=== PATIENT | female | born 1995 | race African-American/Black ===

== ENCOUNTER 2016-08-25 16:11 | Emergency (ER) | payer MEDICAID ==
[2016-08-25] MEDS ORDERED: FLUCONAZOLE 100 MG TABLET PO STA (18:26)
[2016-08-25] MEDS ORDERED: metroNIDAZOLE 250 MG TABLET PO STA (18:26)
[2016-08-25] MEDS ORDERED: metroNIDAZOLE 250 MG TABLET PO ONE (18:29)
[2016-08-25] MEDS ORDERED: FLUCONAZOLE 100 MG TABLET PO ONE (18:29)
== END 2016-08-25 18:48 | disposition home or self-care (01) ==
DX: N76.0 Acute vaginitis (principal); B96.89 Other specified bacterial agents as the cause of diseases classified elsewhere
CPT/HCPCS: 81003; 81025; 87210; 87220; 87491; 87591; 99283; A9270

== ENCOUNTER 2016-10-15 15:38 | Emergency (ER) | payer MEDICAID ==
[2016-10-15] MEDS ORDERED: ONDANSETRON ODT 4 MG TABLET TL STA (16:09)
[2016-10-15] MEDS ORDERED: ONDANSETRON ODT 4 MG TABLET ONE (16:10)
[2016-10-15] MEDS ORDERED: FAMOTIDINE 20 MG TABLET PO STA (16:10)
[2016-10-15] MEDS ORDERED: FAMOTIDINE 20 MG TABLET ONE (16:10)
== END 2016-10-15 17:19 | disposition home or self-care (01) ==
DX: N76.0 Acute vaginitis (principal); B96.89 Other specified bacterial agents as the cause of diseases classified elsewhere; R11.11 Vomiting without nausea; J34.89 Other specified disorders of nose and nasal sinuses
CPT/HCPCS: 36415; 80053; 81003; 81025; 83690; 84703; 99283; A9270; Q0162

== ENCOUNTER 2016-10-21 14:46 | Emergency (ER) | payer MEDICAID | END 2016-10-21 15:24 | disposition home or self-care (01) | DX: Z02.89 Encounter for other administrative examinations (principal) ==

== ENCOUNTER 2016-11-19 14:04 | Emergency (ER) | payer MEDICAID | END 2016-11-19 17:50 | disposition home or self-care (01) | DX: R10.2 Pelvic and perineal pain (principal); N93.9 Abnormal uterine and vaginal bleeding, unspecified ==

== ENCOUNTER 2016-11-30 08:00 | Outpatient (CLI) | payer MEDICAID | END 2016-11-30 23:59 | disposition home or self-care (01) | DX: Z11.3 Encounter for screening for infections with a predominantly sexual mode of transmission (principal) ==

== ENCOUNTER 2016-11-30 15:58 | Outpatient (CLI) | payer MEDICAID | END 2016-11-30 15:59 | disposition home or self-care (01) | DX: Z11.3 Encounter for screening for infections with a predominantly sexual mode of transmission (principal) ==

== ENCOUNTER 2017-06-22 19:59 | Emergency (ER) | payer MEDICAID ==
[2017-06-22 20:42] LABS: BILIRUBIN,URINE NEGATIVE (NEGATIVE)
[2017-06-22 20:47] LABS: HCG UR QUAL NEGATIVE; UA CHARGE (STRIP ONLY) YES; UR CULTURE IF IND NOT INDICATED
[2017-06-22] MEDS ORDERED: metroNIDAZOLE 250 MG TABLET PO STA (23:04)
[2017-06-22] MEDS ORDERED: FLUCONAZOLE 100 MG TABLET PO STA (23:04)
--- NOTE | 2017-06-22 23:06 | ED Physician Documentation ---
PD HPI FEMALE - Stated complaint Stated Complaint: ABDOMINAL PAIN - Chief complaint Chief Complaint: Abd Pain - History obtained from History obtained from: Patient - History of Present Illness Timing - onset: How many days ago (4) Timing - details: Gradual onset, Still present Associated symptoms: Pelvic pain, Vaginal discharge Similar symptoms before: Work up / diagnostics, Treatment Recently seen: Not recently seen - Additional information Additional information: Patient is a 22 year old female presenting to the emergency department for pelvic pain and vaginal discharge. Patient states that last week she tested positive for chlamydia and took an oral medication. Patient states that she still had some discharge and some abdominal pain so she came to get checked out. Review of Systems Constitutional: denies: Fever, Chills Eyes: reports: Reviewed and negative Ears: reports: Reviewed and negative Nose: reports: Reviewed and negative Throat: reports: Reviewed and negative Cardiac: reports: Reviewed and negative Respiratory: reports: Reviewed and negative GI: reports: Abdominal Pain. denies: Nausea, Vomiting, Constipation, Diarrhea : reports: Discharge. 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 - Present Medications Home Medications: Ambulatory Orders Medication Instructions Recorded Confirmed Famotidine 20 mg PO DAILY #30 tablet 10/15/16 Metronidazole [Flagyl] 500 mg PO BID #14 tablet 10/15/16 Ondansetron HCl [Zofran] 4 mg PO Q6H PRN #20 tablet 10/15/16 metroNIDAZOLE [Metronidazole] 500 mg PO BID #14 tablet 06/22/17 - Allergies Allergies/Adverse Reactions: Allergies Allergy/AdvReac Type Severity Reaction Status Date / Time No Known Drug Allergies Allergy Verified 06/22/17 20:10 - Social History Does the pt smoke?: No Smoking Status: Never smoker Does the pt drink ETOH?: Yes Does the pt have substance abuse?: No - Immunizations Immunizations are current?: Yes - POLST Patient has POLST: No PD ED PE NORMAL - Vitals Vital signs reviewed: Yes - General General: Alert and oriented X 3, No acute distress - HEENT HEENT: Atraumatic, PERRL - Neck Neck: Supple, no meningeal sign - Cardiac Cardiac: RRR, No murmur - Respiratory Respiratory: No respiratory distress - Abdomen Abdomen: Soft, Non distended - Derm Derm: Normal color, Warm and dry, No rash - Extremities Extremities: No deformity, Normal ROM s pain - Neuro Neuro: Alert and oriented X 3, No motor deficit, No sensory deficit - Psych Psych: Normal mood PD ED PE EXPANDED - Female Female : Normal external, Vaginal Discharge. No: Dilated cervix, Tissue present, Adnexal Tenderness Results - Vitals Vitals: Vital Signs - 24 hr 06/22/17 06/22/17 20:11 23:17 Temperature 36.8 C 36.8 C Heart Rate 72 78 Respiratory 14 18 Rate Blood Pressure 107/70 130/80 O2 Saturation 100 98 Oxygen O2 Source Room air - Labs Labs: Microbiology 06/22/17 22:30 Wet Prep - Final Vaginal Laboratory Tests 06/22/17 20:24 Urine Color YELLOW Urine Clarity CLEAR Urine pH 6.0 Ur Specific [place] 1.025 Urine Protein NEGATIVE Urine Glucose (UA) NEGATIVE Urine Ketones NEGATIVE Urine Occult Blood NEGATIVE Urine Nitrite NEGATIVE Urine Bilirubin NEGATIVE Urine Urobilinogen 0.2 (NORMAL) Ur Leukocyte Esterase NEGATIVE Ur Microscopic Review NOT INDICATED Urine Culture Comments NOT INDICATED Urine HCG, Qual NEGATIVE PD MEDICAL DECISION MAKING - ED course Complexity details: reviewed old records, reviewed results, re-evaluated patient , considered differential, d/w patient ED course: Patient was seen and examined at bedside. urine was collected and sent. pelvic exam was performed and findings were consistent with BV and a yeast infection. Patient was treated for both. Since patient was recently treated it was decided to wait for culture results before treating for GC/chlamydia again. Patient was made aware of, and was comfortable with the plan. Patient required no further work up and was stable for discharge with outpatient follow up. Departure - Departure Disposition: 01 Home, Self Care Clinical Impression: Bacterial vaginosis Condition: Good Instructions: ED Vaginosis Bacterial Follow-Up: primary,care provider [Other] - As Needed Prescriptions: metroNIDAZOLE [Metronidazole] 500 mg PO BID #14 tablet Comments: Your diagnostics today were consistent with bacterial vaginosis. You will be on metronidazole twice a day for the next week. You cannot drink while taking it. You can call in the next 3 days for your culture results. You should refrain from sexual activity until you have those results. You may return to the emergency department at any time if needed for new, worsening or uncontrollable symptoms. Discharge Date/Time: 06/22/17 23:20
[2017-06-22] MEDS ORDERED: FLUCONAZOLE 100 MG TABLET ONE (23:19)
[2017-06-22] MEDS ORDERED: metroNIDAZOLE 250 MG TABLET PO ONE (23:19)
[2017-06-22 23:20] VITALS: BP 130/80
== END 2017-06-22 23:20 | disposition home or self-care (01) ==
LOC: ED 19:59
DX: N76.0 Acute vaginitis (principal); B96.89 Other specified bacterial agents as the cause of diseases classified elsewhere
CPT/HCPCS: 81003; 81025; 87210; 87491; 87591; 99283; A9270; 81001; 87086

== ENCOUNTER 2017-08-10 10:29 | Emergency (ER) | payer SELFPAY ==
[2017-08-10 11:15] LABS: BILIRUBIN,URINE NEGATIVE (NEGATIVE); GLUCOSE, URINE (UA) NEGATIVE (NEGATIVE); KETONES,URINE (UA) NEGATIVE (NEGATIVE); LEUKOCYTE ESTERASE, URINE NEGATIVE (NEGATIVE); NITRITE,URINE NEGATIVE (NEGATIVE); OCCULT BLOOD,URINE NEGATIVE (NEGATIVE); PROTEIN,URINE NEGATIVE (NEGATIVE); UROBILINOGEN,URINE 0.2 (NORMAL) E.U./dL (NORMAL)
[2017-08-10 11:19] LABS: CLARITY,URINE CLEAR (CLEAR); HCG UR QUAL NEGATIVE
--- NOTE | 2017-08-10 12:35 | ED Physician Documentation ---
History of Present Illness - Stated complaint Stated Complaint: FEMALE , ABD PX, HEADACHE, COUGH, LOSING VOICE - Chief complaint Chief Complaint: General - History obtained from History obtained from: Patient - History of Present Illness Timing: How many days ago (several) Pain level max: 2 Pain level now: 1 - Additonal information Additional information: Patient is a patient is a 22-year-old female who presents to the emergency department with multiple complaints. The first is rhinorrhea, cough and congestion for the past several days. She also feels like she has lost her voice. She states that it is better with resting her voice and worse with talking. The cough is worse when she lies down. No fevers. She also complains of a fishy odor from her vagina. Denies any discharge. Denies any change in sexual partners. Was treated for chlamydia in May. Review of Systems Constitutional: denies: Fever, Chills Nose: reports: Rhinorrhea / runny nose, Congestion Throat: reports: Sore throat (mild) Respiratory: reports: Cough GI: denies: Abdominal Pain, Vomiting, Diarrhea : denies: Dysuria, Frequency, Hesitancy, Now EGA Skin: reports: Rash (States noted a rash to the legs this morning. 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 - Present Medications Home Medications: Ambulatory Orders Medication Instructions Recorded Confirmed Cetirizine HCl/Pseudoephedrine 1 each PO BID PRN #30 tab.er.12h 08/10/17 [Zyrtec-D Tablet] - Allergies Allergies/Adverse Reactions: Allergies Allergy/AdvReac Type Severity Reaction Status Date / Time No Known Drug Allergies Allergy Verified 06/22/17 20:10 - Social History Does the pt smoke?: No Smoking Status: Never smoker Does the pt drink ETOH?: Yes Does the pt have substance abuse?: No - Immunizations Immunizations are current?: Yes - POLST Patient has POLST: No PD ED PE NORMAL - Vitals Vital signs reviewed: Yes - General General: Alert and oriented X 3, No acute distress, Well developed/nourished - HEENT HEENT: PERRL, Ears normal, Moist mucous membranes, Pharynx benign - Neck Neck: Supple, no meningeal sign, No adenopathy - Cardiac Cardiac: RRR, Strong equal pulses - Respiratory Respiratory: No respiratory distress, Clear bilaterally - Abdomen Abdomen: Soft, Non tender, Non distended - Female Female : 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 no significant discharge. no CMT. no ovarian masses. ) - Derm Derm: Warm and dry, Other (mild erythematous rash to the B LE. ) - Neuro Neuro: Alert and oriented X 3 - Psych Psych: Normal mood, Normal affect Results - Vitals Vitals: Vital Signs - 24 hr 08/10/17 08/10/17 08/10/17 10:48 13:03 13:28 Temperature 37.2 C 36.6 C 36.5 C Heart Rate 90 80 64 Respiratory 16 12 14 Rate Blood Pressure 123/83 H 120/72 114/67 O2 Saturation 99 99 100 Oxygen O2 Source Room air - Labs Labs: Microbiology 08/10/17 12:40 DANIA Preparation - Final Other - Vaginal 08/10/17 12:40 Wet Prep - Final Vaginal Laboratory Tests 08/10/17 08/10/17 08/10/17 10:50 11:07 11:07 WBC 3.7 L RBC 4.32 Hgb 12.6 Hct 37.5 MCV 86.8 MCH 29.2 MCHC 33.7 RDW 13.9 Plt Count 183 MPV 9.7 Neut # 1.9 Lymph # 1.1 L [place] # 0.5 Eos # 0.2 Baso # 0.0 Absolute Nucleated RBC 0.00 Nucleated RBC % 0.0 Sodium 137 Potassium 3.5 Chloride 106 Carbon Dioxide 23 Anion Gap 8.0 BUN 14 Creatinine 0.7 Estimated GFR (MDRD) 125 Glucose 80 Calcium 8.7 Total Bilirubin 0.9 AST 23 ALT 15 Alkaline Phosphatase 60 Total Protein 7.4 Albumin 4.2 Globulin 3.2 Albumin/Globulin Ratio 1.3 Lipase 18 L Urine Color YELLOW Urine Clarity CLEAR Urine pH 6.0 Ur Specific [place] >=1.030 H Urine Protein NEGATIVE Urine Glucose (UA) NEGATIVE Urine Ketones NEGATIVE Urine Occult Blood NEGATIVE Urine Nitrite NEGATIVE Urine Bilirubin NEGATIVE Urine Urobilinogen 0.2 (NORMAL) Ur Leukocyte Esterase NEGATIVE Ur Microscopic Review NOT INDICATED Urine Culture Comments NOT INDICATED Urine HCG, Qual NEGATIVE PD MEDICAL DECISION MAKING - ED course Complexity details: reviewed old records, reviewed results, re-evaluated patient , considered differential, d/w patient ED course: Patient is a 22-year-old female who presents to the emergency department what appears to be a viral upper respiratory infection. No evidence of pneumonia, sepsis. No fever. No hypoxia. Also complaining of vaginal odor, unclear etiology. Gonorrhea and chlamydia swabs were sent. Does not appear to have pelvic inflammatory disease. No evidence of bacterial vaginitis, Trichomonas, yeast infection. Will continue supportive care and follow-up with her doctor. Patient counseled regarding signs and symptoms for which I believe and urgent re -evaluation would be necessary. Patient with good understanding of and agreement to plan and is comfortable going home at this time This document was made in part using voice recognition software. While efforts are made to proofread this document, sound alike and grammatical errors may occur. Departure - Departure Disposition: 01 Home, Self Care Clinical Impression: Viral URI, Vaginal odor Condition: Good Instructions: ED Viral Syndrome Follow-Up: your,doctor in 1 week [Other] Prescriptions: Cetirizine HCl/Pseudoephedrine [Zyrtec-D Tablet] 1 each PO BID PRN #30 tab.er.12h PRN Reason: Nasal Congestion Comments: Return if you worsen. Your tests are normal today. Gonorrhea and chlamydia testing are sent and we will call you if the tests are positive. You should have further testing including HIV with your doctor. Discharge Date/Time: 08/10/17 13:30
[2017-08-10 12:44] LABS: EOSINOPHILS # (AUTO) 0.2 10^3/uL (0.0-0.7); EOSINOPHILS % (AUTO) 5.2 %; HGB - HEMOGLOBIN 12.6 g/dL (12.0-16.0); LYMPHOCYTES # (AUTO) 1.1 10^3/uL (1.5-3.5); LYMPHOCYTES % (AUTO) 29.3 %; MEAN CORPUSCULAR HEMOGLOBIN 29.2 pg (27.0-31.0); MEAN CORPUSCULAR HGB CONC 33.7 g/dL (32.0-36.0); MEAN CORPUSCULAR VOLUME 86.8 fL (81.0-99.0); MEAN PLATELET VOLUME 9.7 fL (7.9-10.8); MONOCYTES # (AUTO) 0.5 10^3/uL (0.0-1.0); MONOCYTES % (AUTO) 13.6 %; NEUTROPHILS # (AUTO) 1.9 10^3/uL (1.5-6.6); NEUTROPHILS % (AUTO) 50.9 %; PLT - PLATELET COUNT 183 10^3/uL (130-450); RED BLOOD COUNT 4.32 10^6/uL (4.20-5.40); RED CELL DISTRIBUTION WIDTH 13.9 % (12.0-15.0); WHITE BLOOD COUNT 3.7 x10^3/uL (4.8-10.8)
[2017-08-10 12:51] LABS: ALBUMIN 4.2 g/dL (3.2-5.5); ALBUMIN/GLOBULIN RATIO 1.3 (1.0-2.2); BILIRUBIN,TOTAL 0.9 mg/dL (0.2-1.0); CALCIUM 8.7 mg/dL (8.5-10.3); CREATININE 0.7 mg/dL (0.4-1.0); TOTAL PROTEIN 7.4 g/dL (6.7-8.2)
[2017-08-10 13:30] VITALS: BP 114/67
== END 2017-08-10 13:30 | disposition home or self-care (01) ==
LOC: ED 10:29
DX: J06.9 Acute upper respiratory infection, unspecified (principal); B97.89 Other viral agents as the cause of diseases classified elsewhere; N89.8 Other specified noninflammatory disorders of vagina
CPT/HCPCS: 36415; 80053; 81001; 81003; 81025; 83690; 85025; 87086; 87210; 87220; 87491; 87591; 99283

== ENCOUNTER 2017-08-27 15:11 | Emergency (ER) | payer MEDICAID ==
[2017-08-27] MEDS ORDERED: MAG HYDROX/AL HYDROX/SIMETH 30 ML UDC PO STA (15:58)
[2017-08-27] MEDS ORDERED: PHENobarb/HYOSCY/ATROPINE/SCOP 5 ML SYRINGE PO STA (15:58)
[2017-08-27] MEDS ORDERED: LIDOCAINE VISCOUS 2% 15 ML UDC MM STA (15:58)
--- NOTE | 2017-08-27 16:00 | ED Physician Documentation ---
PD HPI CHEST PAIN - Stated complaint Stated Complaint: CHEST PAIN - Chief complaint Chief Complaint: General - History obtained from History obtained from: Patient - History of Present Illness Timing - onset: How many days ago (3) Timing - onset during: Rest Timing - details: Waxing and waning Location: Substernal Worsened by: Inspiration, Position (Supine) Associated symptoms: No: Shortness of air, Nausea, Vomiting, Cough Similar symptoms before: Has not had sx before - Additional information Additional information: The patient is an otherwise healthy 22-year-old female who presents with substernal chest pain that started 3 days ago and has been waxing and waning since that time. It is worse with deep inspiration or with supine position. She had been experiencing fever, chills, and myalgias for the past few days until yesterday. She denies those symptoms today. She has had slight cough without shortness of breath. She denies abdominal pain, nausea, vomiting, or diarrhea. She denies history of similar symptoms in the past. She quit smoking cigarettes 3 months ago. Review of Systems Constitutional: reports: Fever (Recently), Myalgias (Recently) Nose: denies: Congestion Throat: denies: Sore throat Cardiac: reports: Chest pain / pressure (Substernal). 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 - Present Medications Home Medications: Ambulatory Orders Medication Instructions Recorded Confirmed Cetirizine HCl/Pseudoephedrine 1 each PO BID PRN #30 tab.er.12h 08/10/17 [Zyrtec-D Tablet] HYDROcod/ACETAM 5/325 [[place] 5/325] 1 - 2 ea PO Q6H PRN #15 tablet 08/27/17 - Allergies Allergies/Adverse Reactions: Allergies Allergy/AdvReac Type Severity Reaction Status Date / Time No Known Drug Allergies Allergy Verified 06/22/17 20:10 - Social History Does the pt smoke?: No Smoking Status: Never smoker Does the pt drink ETOH?: Yes Does the pt have substance abuse?: No - Immunizations Immunizations are current?: Yes - POLST Patient has POLST: No PD ED PE NORMAL - Vitals Vital signs reviewed: Yes (Normal) - General General: Alert and oriented X 3, Well developed/nourished - HEENT HEENT: Atraumatic, Moist mucous membranes, Pharynx benign - Neck Neck: No bony TTP, No adenopathy, No JVD - Cardiac Cardiac: RRR, No murmur - Respiratory Respiratory: No respiratory distress, Clear bilaterally, Other (Mild tenderness to palpation of the left anterior chest wall.) - Abdomen Abdomen: Normal bowel sounds, Non tender, No organomegaly, Other (Mild tenderness to epigastric palpation,without rebound or guarding.) - Back Back: No CVA TTP - Derm Derm: No rash - Extremities Extremities: No edema, No calf tenderness / cord - Neuro Neuro: Alert and oriented X 3, No motor deficit, Normal speech Results - Vitals Vitals: Oxygen O2 Source Room air - EKG (time done) 15:18 Rate: Rate (enter#) (101) Rhythm: Sinus tachycardia [place]: Normal QRS: Normal Ischemia: Normal ST segments Computer interpretation: Agree with computer - Labs Labs: Laboratory Tests 08/27/17 18:00 Influenza A (Rapid) Negative Influenza B (Rapid) Negative Influenza Types A,B Ag - - Rads (name of study) CXR Radiology: Prelim report reviewed, EMP read contemporaneously, See rad report ( Normal 2 view chest radiography.) PD MEDICAL DECISION MAKING - ED course Complexity details: reviewed results, re-evaluated patient, considered differential, d/w patient, d/w family ED course: The patient's presentation is most consistent with costochondritis. She had recent respiratory infection, but no current symptoms of respiratory infection. Chest x-ray reveals no evidence of pneumonia. Her electrocardiogram reveals no ischemic abnormalities. Gastroesophageal reflux was considered, but is less likely. Her presentation does not suggest pulmonary embolus, and there is currently no evidence of pericarditis. Flu swab is negative. Treatment in the emergency department included administration of GI cocktail which provided no relief in her symptoms. I discussed with her and her the results of her workup, symptomatic treatment and outpatient follow-up, as well as potentially worrisome signs or symptoms that should prompt reevaluation in the emergency department. She is being discharged with prescription for Vicodin, 15 tablets. Departure - Departure Disposition: Home, Self Care Clinical Impression: Costochondral chest pain Condition: Stable Instructions: ED Chest Pain Costochondritis Prescriptions: HYDROcod/ACETAM 5/325 [[place] 5/325] 1 - 2 ea PO Q6H PRN #15 tablet PRN Reason: Pain Comments: You can use ibuprofen, up to 800 mg 3 times daily for its anti-inflammatory effect. You can use Vicodin as prescribed if needed for pain. Follow-up with primary physician within 2 weeks if possible. Call to schedule appointment. Return to the emergency department if you develop increasing chest pain, increasing difficulty breathing, or otherwise worsening symptoms. Discharge Date/Time: 08/27/17 19:11
--- NOTE | 2017-08-27 17:12 | XRAY Report ---
EXAM: CHEST RADIOGRAPHY EXAM DATE: 08/27/2017 05:04 PM. CLINICAL HISTORY: Chest pain. COMPARISON: 08/09/2016 chest x-ray. TECHNIQUE: 2 views. FINDINGS: Lungs/Pleura: No focal opacities evident. No pleural effusion. No pneumothorax. Normal volumes. Mediastinum: Heart and mediastinal contours are unremarkable. Other: None. IMPRESSION: Normal 2-view chest radiography. [facility] Referring Provider Line: [phone] SITE ID: [id number]
[2017-08-27 18:48] VITALS: BP 127/69
== END 2017-08-27 19:11 | disposition home or self-care (01) ==
LOC: ED 15:11
DX: R07.1 Chest pain on breathing (principal)
CPT/HCPCS: 71046; 87275; 87276; 93005; 99283; 99284; A9270

== ENCOUNTER 2017-12-17 09:33 | Emergency (ER) | payer MEDICAID ==
[2017-12-17] MEDS ORDERED: MAG HYDROX/AL HYDROX/SIMETH 30 ML UDC PO STA (10:29)
[2017-12-17] MEDS ORDERED: LIDOCAINE VISCOUS 2% 15 ML UDC MM STA (10:29)
--- NOTE | 2017-12-17 10:40 | ED Physician Documentation ---
PD HPI CHEST PAIN - Stated complaint Stated Complaint: CHEST PX - Chief complaint Chief Complaint: Cardiac - History obtained from History obtained from: Patient - History of Present Illness Timing - onset: How many days ago (3) Timing - details: Waxing and waning Location: Substernal Worsened by: Inspiration, Position (supine) Similar symptoms before: Work up / diagnostics (She was seen in the emergency department here 4 months ago with similar symptoms, and workup was inconclusive at that time.) - Additional information Additional information: The patient is a 22-year-old female who presents with substernal chest pain that started 3 days ago and has persisted since that time. Pain is worse with deep inspiration or with supine position. She denies associated cough, shortness of breath, fever, nausea or vomiting. Review of her medical records reveals that she was seen here 4 months ago with a similar presentation. EKG and chest x-ray were normal at that time except for mild sinus tachycardia of 101. The workup at that time was inconclusive, and she was discharged with a presumptive diagnosis of costochondritis. Review of Systems Constitutional: denies: Fever Nose: denies: Congestion Throat: denies: Oral lesions / sores Cardiac: reports: Chest pain / pressure. 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 - Present Medications Home Medications: Ambulatory Orders Medication Instructions Recorded Confirmed Cetirizine HCl/Pseudoephedrine 1 each PO BID PRN #30 tab.er.12h 08/10/17 [Zyrtec-D Tablet] HYDROcod/ACETAM 5/325 [[place] 5/325] 1 - 2 ea PO Q6H PRN #15 tablet 08/27/17 Azithromycin [Zithromax] 250 mg PO DAILY #6 tablet 12/17/17 - Allergies Allergies/Adverse Reactions: Allergies Allergy/AdvReac Type Severity Reaction Status Date / Time No Known Drug Allergies Allergy Verified 12/17/17 09:56 - Social History Does the pt smoke?: No Smoking Status: Never smoker Does the pt drink ETOH?: Yes Does the pt have substance abuse?: No - Immunizations Immunizations are current?: Yes - POLST Patient has POLST: No PD ED PE NORMAL - Vitals Vital signs reviewed: Yes (normal) - General General: Alert and oriented X 3, Well developed/nourished, Other (Overweight) - HEENT HEENT: Atraumatic, Pharynx benign - Neck Neck: No adenopathy, No JVD - Cardiac Cardiac: RRR, No murmur - Respiratory Respiratory: No respiratory distress, Clear bilaterally - Abdomen Abdomen: Soft, Non tender - Back Back: No CVA TTP - Derm Derm: No rash - Extremities Extremities: No edema, No calf tenderness / cord - Neuro Neuro: Alert and oriented X 3, No motor deficit, Normal speech Results - Vitals Vitals: Oxygen O2 Source Room air - EKG (time done) 09:40 Rate: Rate (enter#) (105) Rhythm: LAE [place]: Normal Ischemia: Other (RSR' in V1) Compare to prior EKG: Unchanged from prior EKG Computer interpretation: Agree with computer - Labs Labs: Laboratory Tests 12/17/17 12/17/17 12/17/17 11:44 11:44 11:44 WBC 8.3 RBC 4.45 Hgb 12.5 Hct 38.1 MCV 85.6 MCH 28.0 MCHC 32.7 RDW 13.9 Plt Count 195 MPV 9.0 Neut # 5.4 Lymph # 2.0 [place] # 0.8 Eos # 0.1 Baso # 0.0 Absolute Nucleated RBC 0.01 Nucleated RBC % 0.1 D-Dimer 221.3 Sodium 137 Potassium 3.4 L Chloride 103 Carbon Dioxide 25 Anion Gap 9.0 BUN 10 Creatinine 0.7 Estimated GFR (MDRD) 125 Glucose 91 Calcium 9.2 Total Bilirubin 1.6 H AST 16 ALT 12 Alkaline Phosphatase 47 Troponin I Total Protein 7.6 Albumin 4.2 Globulin 3.4 Albumin/Globulin Ratio 1.2 Lipase 31 12/17/17 11:44 WBC RBC Hgb Hct MCV MCH MCHC RDW Plt Count MPV Neut # Lymph # [place] # Eos # Baso # Absolute Nucleated RBC Nucleated RBC % D-Dimer Sodium Potassium Chloride Carbon Dioxide Anion Gap BUN Creatinine Estimated GFR (MDRD) Glucose Calcium Total Bilirubin AST ALT Alkaline Phosphatase Troponin I < 0.04 Total Protein Albumin Globulin Albumin/Globulin Ratio Lipase - Rads (name of study) 2-view CXR Radiology: Prelim report reviewed, EMP read contemporaneously, See rad report ( Mild hypoinflation. Focal opacity at the lung base demonstrated only on the lateral view. Differential diagnosis includes focal atelectasis or infiltrate or a small hiatal hernia. Further evaluation by CT imaging could be performed.) Chest CT Radiology: Prelim report reviewed, EMP read contemporaneously, See rad report ( Focal consolidation at the anterior aspect of the base of the left lower lobe, corresponding to the pulmonary opacity seen on radiographs. Findings may represent segmental atelectasis or pneumonia. Given the absence of clear volume loss, pneumonia is thought to be more likely.) PD MEDICAL DECISION MAKING - ED course Complexity details: reviewed old records, reviewed results, re-evaluated patient , considered differential, d/w patient ED course: The patient's presentation is significant for left lower lobe focal consolidation suggestive of pneumonia. This was a very subtle finding on chest x-ray, and was more clearly elucidated on CT scan of the chest. There is no evidence of pulmonary embolus or congestive heart failure. Treatment in the emergency department included administration of GI cocktail, which did not change her discomfort. Zithromax 500 mg is administered orally. She is being discharged with prescription for Zithromax. I discussed with her the diagnosis, expected course of illness, antibiotic treatment and outpatient follow-up, as well as potentially worrisome signs or symptoms that should prompt reevaluation in the emergency department. Departure - Departure Disposition: 01 Home, Self Care Clinical Impression: Pneumonia Qualifiers: Pneumonia type: due to unspecified organism Laterality: left Lung location: lower lobe of lung Qualified Code(s): J18.1 - Lobar pneumonia, unspecified organism Condition: Stable Instructions: ED Pneumonia Adult Follow-Up: [facility] [Provider Group] Prescriptions: Azithromycin [Zithromax] 250 mg PO DAILY #6 tablet Comments: Take Zithromax daily as prescribed. You can use Tylenol or ibuprofen if needed for fever or discomfort. Follow up with your primary physician within 1-2 weeks. Call to schedule appointment. Return to the emergency department if you develop increasing difficulty breathing, or otherwise worsening symptoms. Discharge Date/Time: 12/17/17 14:41
[2017-12-17 11:50] LABS: BASOPHILS % (AUTO) 0.5 %; EOSINOPHILS # (AUTO) 0.1 10^3/uL (0.0-0.7); EOSINOPHILS % (AUTO) 0.9 %; HGB - HEMOGLOBIN 12.5 g/dL (12.0-16.0); LYMPHOCYTES % (AUTO) 23.8 %; MEAN CORPUSCULAR HGB CONC 32.7 g/dL (32.0-36.0); MEAN CORPUSCULAR VOLUME 85.6 fL (81.0-99.0); MONOCYTES # (AUTO) 0.8 10^3/uL (0.0-1.0); MONOCYTES % (AUTO) 9.3 %; NEUTROPHILS # (AUTO) 5.4 10^3/uL (1.5-6.6); NEUTROPHILS % (AUTO) 65.5 %; PLT - PLATELET COUNT 195 10^3/uL (130-450); RED BLOOD COUNT 4.45 10^6/uL (4.20-5.40); RED CELL DISTRIBUTION WIDTH 13.9 % (12.0-15.0); WHITE BLOOD COUNT 8.3 x10^3/uL (4.8-10.8)
[2017-12-17 12:02] LABS: ALBUMIN 4.2 g/dL (3.2-5.5); ALBUMIN/GLOBULIN RATIO 1.2 (1.0-2.2); BILIRUBIN,TOTAL 1.6 mg/dL (0.2-1.0); CALCIUM 9.2 mg/dL (8.5-10.3); CREATININE 0.7 mg/dL (0.4-1.0); TOTAL PROTEIN 7.6 g/dL (6.7-8.2)
--- NOTE | 2017-12-17 12:53 | XRAY Report ---
EXAM: CHEST RADIOGRAPHY EXAM DATE: 12/17/2017 12:37 PM. CLINICAL HISTORY: Chest pain. COMPARISON: 08/27/2017 and 08/09/2016. TECHNIQUE: 2 views. FINDINGS: Lungs/Pleura: Mild hypoinflation. Focal density at the mid lung base on the lateral view along the d orsal margin of the heart, without definite correlate on the PA view. 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 This could represent focal infiltrate or atelectasis. Lungs otherwise appear ahsan ar. No cheri pleural effusion. No pneumothorax. Mediastinum: Heart and mediastinal contours are unremarkable. Other: None. IMPRESSION: 1. Mild hypoinflation. 2. Focal opacity at the lung base demonstrated only on the lateral view. Differential diagnosis inclu rica focal atelectasis or infiltrate or a small hiatal hernia. Further evaluation by CT imaging could be performed. [facility] Referring Provider Line: [phone] SITE ID: [id number]
--- NOTE | 2017-12-17 12:53 | XRAY Preliminary Report ---
Exam: XR CHEST 2 VIEW X-RAY IMPRESSION: 1. Mild hypoinflation. 2. Focal opacity at the lung base demonstrated only on the lateral view. Differential diagnosis inclu rica focal atelectasis or infiltrate or a small hiatal hernia. Further evaluation by CT imaging could be performed. [facility] SITE ID: [id number]
[2017-12-17] MEDS ORDERED: IOPAMIDOL-300 100 ML VIAL ONE (13:16)
[2017-12-17] MEDS ORDERED: IOPAMIDOL-300 100 ML VIAL IVP ONE (13:56)
--- NOTE | 2017-12-17 14:22 | CT Report ---
EXAM: CT CHEST EXAM DATE: 12/17/2017 01:56 PM. CLINICAL HISTORY: Indistinct basilar finding on plain film. COMPARISONS: Two-view chest radiographs 12/17/2017, 08/27/2017, 08/09/2016. TECHNIQUE: Routine helical CT imaging was performed through the chest. IV contrast: 80 cc Isovue-300. Reconstructions: Coronal and sagittal. In accordance with CT protocol optimization, one or more of the following dose reduction techniques w ere utilized for this exam: automated exposure control, adjustment of mA and/or KV based on patient s ize, or use of iterative reconstructive technique. FINDINGS: Lungs/Pleura: There is an area of focal consolidation at the anterior aspect of the base of the left lower lobe which measures approximately 6.4 x 2.0 cm (series 4 image 34). There is no definite associ ated volume loss. There is mild subsegmental atelectasis in the dependent portion of the base of the left lower lobe and right lower lobe. No nodules, bronchial thickening, or edema. Pulmonary vasculatu re is normal. No pericardial or pleural effusion. No pneumothorax. Mediastinum: Normal. No adenopathy or masses. The heart and great vessels are normal. Bones: Unremarkable. Visualized Abdomen: Unremarkable. Other: None. IMPRESSION: Focal consolidation at the anterior aspect of the base of the left lower lobe, corresponding to the p ulmonary opacity seen on radiographs. Findings may represent segmental atelectasis or pneumonia. Give n the absence of clear volume loss, pneumonia is thought to be more likely. [facility] Referring Provider Line: [phone] SITE ID: [id number]
--- NOTE | 2017-12-17 14:22 | CT Preliminary Report ---
Exam: CT CHEST W/ IMPRESSION: Focal consolidation at the anterior aspect of the base of the left lower lobe, corresponding to the p ulmonary opacity seen on radiographs. Findings may represent segmental atelectasis or pneumonia. Give n the absence of clear volume loss, pneumonia is thought to be more likely. [facility] SITE ID: [id number]
[2017-12-17] MEDS ORDERED: AZITHROMYCIN 250 MG TABLET PO STA (14:25)
[2017-12-17 14:33] VITALS: BP 117/84
== END 2017-12-17 14:41 | disposition home or self-care (01) ==
LOC: ED 09:33
DX: J18.1 Lobar pneumonia, unspecified organism (principal); E66.3 Overweight; R07.89 Other chest pain
CPT/HCPCS: 36415; 71046; 71260; 80053; 83690; 84484; 85025; 85379; 93005; 99283; 99284; A9270; Q9967